=== PATIENT | female | born 1970 | race Caucasian/White ===

== ENCOUNTER 2016-05-06 16:48 | Observation (INO) ==
[2016-05-06] MEDS ORDERED: ACETAMINOPHEN 325 MG TABLET PO PRN (16:52)
[2016-05-06] MEDS ORDERED: DOCUSATE SODIUM 100 MG CAPSULE PO PRN (16:52)
[2016-05-06] MEDS ORDERED: ONDANSETRON 4 MG/2 ML VIAL IV PRN (16:52)
--- NOTE | 2016-05-06 17:01 | Family Practice History&Phys ---
Assessment and Plan - Time spent with patient Time spent with patient: Greater than 30 minutes (1) Intractable nausea and vomiting Status: Acute Assessment and plan: Monitor daily wts..IV hydration...antiemetics Qualifiers: Vomiting type: unspecified Qualified Code(s): R11.2 - Nausea with vomiting , unspecified (2) Diarrhea Status: Acute Assessment and plan: as above Qualifiers: Diarrhea type: presumed infectious Qualified Code(s): A09 - Infectious gastroenteritis and colitis, unspecified (3) Right upper quadrant abdominal pain Status: Acute (4) Weakness generalized Status: Acute (5) HTN (hypertension), benign Status: Chronic History of Present Illness Chief complaint: intractable n/v diarrhe,ruq pain,fatigue History of present illness: Ms. Camilo is a 45 year old female 45 year-old female presented today in my clinic as a walk in with complaints nausea, vomiting, or diarrhea. Nausea and vomiting started on Friday. Diarrhea started on Friday night. She admits to abdominal cramps and bloating. She denies fever, but admits to chills. She denies chest pain or shortness of breath. She is able to tolerate liquids. She admits to vomiting x 2 on today and diarrhea x 3 on today. She states she thought she had food poisoning because symptoms started 2 hours after eating on Friday. She is in mild distress at present with an IV and Zofran and cannot stop vomiting. With a WBC elevated to 15K it was thought prudent to admit for observation at th is time. Home Medications Medication Instructions Recorded Confirmed Type Ethinyl Estradiol/Drospirenone 1 tablet PO DAILY 01/09/15 01/09/15 History [Jackie 28 Tablet] Fluoxetine HCl [Prozac] 40 mg PO DAILY 01/09/15 01/09/15 History Lisinopril [Lisinopril] 20 mg PO DAILY 01/09/15 01/09/15 History Pantoprazole Tab [Protonix Tab] 40 mg PO DAILY 01/09/15 01/09/15 History hydroCHLOROthiazide 1 tablet PO DAILY 01/09/15 01/09/15 History [Hydrochlorothiazide] Allergies Allergy/AdvReac Type Severity Reaction Status Date / Time Sulfa (Sulfonamide Allergy RASH Verified 01/09/15 18:27 Antibiotics) 12 point system: reviewed and no additional remarkable complaints except as stated (as stated in HPI) Medical,Surgical,& Family Hx - Medical History Cardio: History of: Hypertension Genitourinary: History of: Kidney Stones Gastrointestinal: History of: GERD - Social History Smoking Status: Never smoker Exam - Constitutional General appearance: normal weight - Head Head exam: Present: normal inspection - Eye Eye exam: Present: EOMI Pupils: Present: MEKHI - Neck Neck exam: Present: normal inspection. Absent: lymphadenopathy - Respiratory Respiratory exam: Present: clear to auscultation bilaterally - Cardiovascular Cardiovascular exam: Present: regular rate and rhythm - GI/Abdominal GI/Abdominal exam: Present: hyperactive bowel sounds, soft - Extremities Exam Extremities exam: Present: normal inspection - Neurological Exam Neurological exam: Present: alert, oriented X3 - Psychiatric Psychiatric exam: Present: normal affect - Skin Skin exam: Present: normal color, intact
[2016-05-06] MEDS: metroNIDAZOLE INJ 500 MG in PREMIX 1 EACH IV SCH (17:37)
[2016-05-06] MEDS: SODIUM CHLORIDE 0.9% 1,000 ML IV SCH (17:37)
[2016-05-06] MEDS ORDERED: PROMETHAZINE 25 MG/1 ML VIAL IM PRN (20:14)
[2016-05-06] MEDS ORDERED: LORazepam 2 MG/1 ML VIAL IV PRN (20:15)
[2016-05-06 20:50] LABS: Apearance,Urine Slightly Hazy (Clear); Bilirubin,Urine Negative (Negative); Blood, Urine Negative (Negative); Glucose,Urine (UA) Negative (Negative); Granular Casts,Urine 10 /LPF (0-1); Hyaline Casts,Urine 3 /LPF (0-3); Ketones,Urine Negative (Negative); Mucus,Urine Occasional /LPF (Occasional); Nitrite,Urine Negative (Negative); Protein,Urine Negative; RBC,Urine <1 /HPF (0-4); Squamous Epithelial Cell,Urine Occasional /HPF (0-10); Urine Color Yellow (Yellow); Urine Specific Gravity 1.019 (1.001-1.035); Urine Urobilinogen < 2.0 EU/DL (0.2-1.0)
[2016-05-06] MEDS: CIPROFLOXACIN INJ 400 MG in PREMIX 1 EACH IV SCH (21:51)
[2016-05-07 04:06] LABS: Basophils % 0.2 % (0.0-0.8); Eosinophils % 0.1 % (0.00-10.9); Hematocrit 38.6 VOL% (35.7-47.0); Hemoglobin 12.8 GM/DL (12.0-16.0); Immature Granulocytes % 1.4 %; Immature Granulocytes Absolute 0.18 #; Lymphocytes # 0.7 10*3/uL (1.4-4.0); Lymphocytes % 5.5 % (21.3-54.2); Mean Corpuscular HGB Conc 33.2 GM/DL (32-36); Mean Corpuscular Hemoglobin 28 PG (27-34); Mean Corpuscular Volume 83.4 FL (87-102); Mean Platelet Volume 10.1 FL (9.6-12.0); Monocytes # 0.4 10*3/uL (0.11-0.8); Monocytes % 3.3 % (1.7-12.7); Neutrophils # 11.3 10*3/uL (1.4-7.4); Neutrophils % 89.5 % (38.7-73.9); Platelet Count 145 T/CUMM (130-400); Red Blood Count 4.63 MC/CUMM (3.8-5.5); Red Cell Distribution Width 14.1 % (9.3-17.3); White Blood Count 12.6 T/CUMM (4-12)
[2016-05-07] MEDS: metroNIDAZOLE INJ 500 MG in PREMIX 1 EACH IV SCH ×2 (04:34→20:10)
[2016-05-07 04:38] LABS: Albumin 2.6 G/DL (3.4-5.0); Bilirubin,Total 0.4 MG/DL (0.2-1.0); Calcium 7.5 MG/DL (8.5-10.1); Osmolality,Calculated 281.3 MOS/KG (273-304); Potassium 3.7 MMOL/L (3.5-5.1); Total Protein 5.2 G/DL (6.4-8.3)
[2016-05-07] MEDS: SODIUM CHLORIDE 0.9% 1,000 ML IV SCH ×2 (08:26→18:23)
[2016-05-07] MEDS: CIPROFLOXACIN INJ 400 MG in PREMIX 1 EACH IV SCH ×2 (08:31→22:10)
[2016-05-07] MEDS: PANTOPRAZOLE 40 MG TABLET PO SCH (08:31)
[2016-05-07] MEDS: LACTOBACILLUS ACIDOPHILUS/BULGARICUS CAPLET PO SCH ×2 (11:21→20:10)
[2016-05-08] MEDS: SODIUM CHLORIDE 0.9% 1,000 ML IV SCH (04:00)
[2016-05-08] MEDS: LACTOBACILLUS ACIDOPHILUS/BULGARICUS CAPLET PO SCH (08:44)
[2016-05-08] MEDS: PANTOPRAZOLE 40 MG TABLET PO SCH (08:44)
[2016-05-08] MEDS: metroNIDAZOLE INJ 500 MG in PREMIX 1 EACH IV SCH (08:45)
--- NOTE | 2016-05-08 09:11 | Discharge Summary ---
Hospital Course - Hospital Course Hospital Course: Patient came in with intractable nausea and vomiting and dehydration. She had abdominal discomfort. We put her in the hospital and started on IV antibiotics as well as fairly aggressive hydration. She did turn around after 2 days and we started on clear liquids and worked her way up to full liquid diet during which time she was able to tolerate them. It should be noted I had a similar patient in here the required 6 days without antibiotics and this did allow us to discharge her in 2 days. It does sound like it was a bacterial gastroenteritis. She was discharged home told to follow-up as directed. She voiced understanding and was in good spirits and ready to go home Diagnosis - Discharge Diagnosis (1) Intractable nausea and vomiting Status: Acute (2) Diarrhea Status: Acute (3) Right upper quadrant abdominal pain Status: Acute (4) Weakness generalized Status: Acute (5) HTN (hypertension), benign Status: Chronic Specialty Discharge - Follow Up or Referrals Follow up with: Albert Tran DO [Physician] - 05/22/16 1:00 pm Discharge Plan - Discharge Data Disposition: Disch To Home/Self Care Condition at Discharge: Stable Discharge Diet: advance to your usual diet Activity: resume usual activities as tolerated Hygiene: no restrictions Weight Bearing at Discharge: full weight bearing Driving: no restrictions Contact your physician if you experience:: fever over 101, Nausea/Vomiting - Discharge Medications New Ciprofloxacin Tab [Cipro Tab] 500 mg PO BID #8 tablet LORazepam TAB [Ativan Tab] 0.5 mg PO Q8H PRN #10 tablet PRN Reason: nausea Ondansetron Tab [Zofran Tab] 4 mg PO Q8H #10 tablet Lactobacillus Acidoph/Bulgar [Bacid] 1 caplet PO BID #60 caplet Promethazine Tab [Phenergan Tab] 25 mg PO Q8H PRN #10 tablet PRN Reason: Nausea Continue hydroCHLOROthiazide [Hydrochlorothiazide] 1 tablet PO DAILY Pantoprazole Tab [Protonix Tab] 40 mg PO DAILY Ethinyl Estradiol/Drospirenone [Jackie 28 Tablet] 1 tablet PO DAILY Fluoxetine HCl [Prozac] 40 mg PO DAILY - Follow Up or Referral Follow Up: Albert Tran DO [Physician] - 05/22/16 1:00 pm - Forms/Instructions Exam - Constitutional Vitals: Period Temp Pulse Resp BP Sys/Meredith Pulse Ox Last 24 Hr 98.2 F-98.4 F 79-113 18-20 113-131/62-73 97-99 Discharge Results Procedures and tests throughout hospitalization: Pending Orders 05/06/16 17:59 Blood Culture Stat 05/06/16 19:50 Urine Culture Stat Labs on day of discharge: Preliminary micro results at discharge 05/06/16 17:59 Blood Culture - Preliminary Blood No growth at 1 day 05/06/16 17:59 Blood Culture - Preliminary Blood No growth at 1 day 05/06/16 19:50 Urine Culture - Preliminary Urine,Clean Catch No Growth at 12 hours. DS: Provider Date of admission: 05/06/16 17:08 Primary care physician: Duke Renteria MD Attending physician on admission: Albert Tran DO Consults: 05/06/16 16:52 Consult to Case Mgmt/Social Srvs [CONS] Routine Reason for Case Mgmt/Social Srvs: Discharge Planning Discharging clinician: Albert Tran DO
[2016-05-08 09:55] VITALS: BP 112/57
[2016-05-08] MEDS: CIPROFLOXACIN INJ 400 MG in PREMIX 1 EACH IV SCH (10:48)
== END 2016-05-08 11:05 | disposition home or self-care (01) ==
LOC: N.2E
PROVIDERS: ADMIT Family Medicine; ATTEND Family Medicine